=== PATIENT | male | born 1995 | race Two or more races ===

== ENCOUNTER 2023-11-25 16:58 | Emergency (ER) | payer OTHER ==
[~2023-11-25] VITALS: Ht 167.6 cm; Wt 56.7 kg
[2023-11-25] MEDS ORDERED: KETOROLAC TROMETHAMINE 30 MG VIAL IM STA (18:17)
[2023-11-25] MEDS ORDERED: CEFTRIAXONE SODIUM 1,000 MG VIAL IM STA (18:17)
[2023-11-25 19:36] LABS: HEMATOCRIT 41.7 % (39.0-48.0); HEMOGLOBIN 14.2 g/dL (13-16.00); MEAN CELL VOLUME 89.3 fL (80.0-100.00); MEAN CORPUSCULAR HEMOGLOBIN 30.4 pg (27.00-32.0); PLATELET COUNT 251 K/uL (150-450); RED BLOOD COUNT 4.67 M/uL (4.00-6.00); RED CELL DISTRIBUTION WIDTH 13.7 % (11.5-14.5)
== END 2023-11-25 20:08 | disposition home or self-care (01) ==
LOC: ER 16:58
PROVIDERS: General Practice
DX: L02.31 Cutaneous abscess of buttock (principal); L03.317 Cellulitis of buttock